=== PATIENT | male | born 1980 | race Caucasian/White ===

== ENCOUNTER 2017-01-13 11:54 | Emergency (ER) | payer OTHER ==
[2017-01-13 12:10] VITALS: BP 145/94; PULSE 83; TEMP 97.9; BMI 27.1
[2017-01-13] MEDS ORDERED: KETOROLAC TROMETHAMINE 60 MG/2 ML VIAL IM ONE (13:21)
--- NOTE | 2017-01-13 13:24 | PDOC ---
History of Present Illness - General Chief Complaint: Chronic pain Stated Complaint: LT LEG PAIN Time Seen by Provider: 01/13/17 12:50 History Source: Patient - History of Present Illness Initial Comments: 01/13/17 13:23 Chief Complaint: "My knee hurts" Pt. is a 36 y/o male with a PMH of gout presents to the ED with L knee pain. Primarily Bermudian speaking, general dentist used #[id number]. Pt. states that his knee started hurting last night. Denies trauma or falling. Admits to pain with flexion of the knee. Pt. states that this feels like his gout pain, but he also has a problem with his cartilage. Admits to eating seafood within the last week. Denies fevers, chills, recent illness, numbness or tingling, or weakness of the leg. Past History - Travel Traveled outside of the country in the last 30 days: No Close contact w/someone who was outside of country & ill: No - Past Medical History Allergies/Adverse Reactions: Allergies Allergy/AdvReac Type Severity Reaction Status Date / Time No Known Allergies Allergy Verified 01/13/17 12:10 Home Medications: Ambulatory Orders Indomethacin 50 mg PO BID #14 capsule MDD 2 01/13/17 Other medical history: GOUT - Surgical History Abdominal Surgery: Yes ([facility]PASS) - Psycho/Social/Smoking Cessation Hx Suicidal Ideation: No Smoking History: Never smoked Information on smoking cessation initiated: No Hx Alcohol Use: No Drug/Substance Use Hx: No Substance Use Type: None Review of Systems - Review of Systems Able to Perform ROS?: Yes (Marketing Co Op used #[id number]) Is the patient limited Faroese proficient: Yes Constitutional: No: Chills, Fever, Weakness Musculoskeletal: Yes: Gout, Joint Pain (L knee), Joint Swelling (L knee). No: Muscle Pain, Muscle Weakness Integumentary: No: Bruising, Erythema Neurological: No: Numbness, Paresthesia, Weakness *Physical Exam - Vital Signs Last Vital Signs Temp Pulse Resp BP Pulse Ox 97.9 F 83 18 145/94 98 01/13/17 12:08 01/13/17 12:08 01/13/17 12:08 01/13/17 12:08 01/13/17 12:08 - Physical Exam General Appearance: Yes: Nourished, Appropriately Dressed, Mild Distress ( Holding L knee in extension while sitting on bed.) Neck: positive: Trachea midline, Supple. negative: Tender, Rigid Vascular Pulses: Dorsalis-Pedis (R): 2+, Doralis-Pedis (L): 2+ Extremity: positive: Normal Capillary Refill, Tender (TTP of the L lateral knee) , Swelling (L knee with effusion to superior knee). negative: Normal Inspection , Normal Range of Motion (able to flex L knee to only 30 degrees), Pedal Edema, Calf Tenderness, Erythema (no associated warmth of the knee. ) Integumentary: positive: Normal Color, Dry, Warm Deep Tendon Reflexes: Knee (L): 2+, Knee (R): 2+ ED Treatment Course - RADIOLOGY Radiology Studies Ordered: Category Date Time Status KNEE 3 POS-LEFT [RAD] Stat Radiology 01/13/17 13:21 Ordered Medical Decision Making - Medical Decision Making 01/13/17 23:03 Pt. a 36-year-old male with past medical history of gout presenting with left knee pain. Pt. is afebrile and VVS. Given his history of knee pain and presenting symptoms will order a uric acid level at this time. Joint is able to move. Effusion to superior knee. There is no obvious signs of infection, no breaks in the skin. Less likely a septic joint. Also x-ray of the knee to rule out injury. Will give Tordol for pain. 01/13/17 X ray shows evidence of effusion, no fractures. Uric acid is elevated at this time. Will treat as a Gout attack. Will prescribe indomethacin at this time and wrap the patients knee for compression. Advised patient to elevate knee and ice for 20 minute intervals. Advised patient to not bear weight on the knee. States he has crutches at home and will use them when he gets home. Pt. was given discharge instructions in [facility] and the translation line was used #[id number]. Pt. understands all discharge instructions and this time and all questions were answered. *DC/Admit/Observation/Transfer Diagnosis at time of Disposition: Gout attack Qualifiers: Gout site: knee Gout etiology: unspecified cause Laterality: left Qualified Code(s): M10.9 - Gout, unspecified - Discharge Dispostion Admit: No - Prescriptions Prescriptions: Indomethacin 50 mg PO BID #14 capsule MDD 2 - Referrals Referrals: Geoffrey Mas MD [Staff Physician] - - Patient Instructions Printed Discharge Instructions: DI for Gout Additional Instructions: Voc tem um pingo de gota que est causando sua ted. H algum fluido em torno do seu joelho. Brooks do joelho afetado e usar o envoltrio RASHAUN. Eleve a cally quando estiver sentado. Pegue o medicamento conforme prescrito. Acompanhe com ortopedia em francisco semana. Retorne ED se voc tiver anayeli, calafrios, ted de piora ou qualquer altera o nos sintomas Print Language: BENINESE - Post Discharge Activity Work/School Note: Back to Work
[2017-01-13] MEDS ORDERED: KETOROLAC TROMETHAMINE 60 MG/2 ML VIAL ONE (13:38)
== END 2017-01-13 15:28 | disposition home or self-care (01) ==
LOC: JERFT 11:54
PROC: 3E0233Z Introduction of Anti-inflammatory into Muscle, Percutaneous Approach (ICD-10-PCS; principal; 2017-01-13)
DX: M10.9 Gout, unspecified (principal)
CPT/HCPCS: 36415; 73562-TC-LT; 84550; 96372; 99281-25